=== PATIENT | male | born 1970 | race Caucasian/White ===

== ENCOUNTER 2022-11-09 10:41 | Outpatient (CLI) | payer BC, SELFPAY ==
--- NOTE | 2022-11-12 12:42 | WPDHOLTEREM ---
Holter/Event Monitor Holter/Event Monitor Date of procedure: 11/09/22 Holter/Event Procedure: 24 Hr Holter Monitor Indications: Bradycardia Conclusion: 1. 24 hour holter monitor on 11/09/22. 2. Underlying rhythm is sinus rhythm. HR range 50-119 bpm; average HR 68 bpm. 3. There are 2 premature supraventricular complexes. No supraventricular tachycardia. 4. There is 1 premature ventricular complex. No ventricular tachycardia. 5. No sinoatrial or atrioventricular blocks. No significant pauses greater than 2 seconds. 6. No symptoms available for correlation.
== END 2022-11-09 10:42 | disposition home or self-care (01) ==
LOC: CHSCARD 10:47
PROVIDERS: PCP Internal Medicine; Visit Provider Internal Medicine
DX: R00.1 Bradycardia, unspecified (principal)
CPT/HCPCS: 93225; 93226

== ENCOUNTER 2023-01-15 00:14 | Day surgery (SDC) | payer BC, SELFPAY ==
[2022-12-18 14:25] VITALS: BMI 33.0
[2023-01-15 06:36] VITALS: BP 128/84; PULSE 62; RESP 18; TEMP 36.1; O2SAT 100
[2023-01-15] MEDS: LACTATED RINGERS 1,000 ML 150 ML IV CONT (06:49)
--- NOTE | 2023-01-15 07:02 | P.PNAN_ITS ---
Anes - Initial Pre Proc Eval Procedure: Operation Date: 01/15/23 08:00 Proposed Procedures p Screening Colonoscopy - Jacky Mckeon MD Date/Time: 01/15/23 07:02 Surgeon: Jacky Mckeno MD Pre Op Diagnosis: neoplasm screening Patient Data Age: 52 Gender: M Height: 1.85 m Weight: 116.1 kg Last Vital Signs Temp 36.1 C L 01/15/23 06:36 Pulse 62 01/15/23 06:36 Resp 18 01/15/23 06:36 BP 128/84 01/15/23 06:36 Pulse Ox 100 01/15/23 06:36 O2 Del Method Room Air 01/15/23 06:36 Allergies Allergy/AdvReac Type Severity Reaction Status Date / Time No Known Allergies Allergy Verified 01/15/23 06:33 Home Medications Medication Instructions Recorded Confirmed Type multivit,calc,mins-folic 240 1 tablet PO DAILY 12/18/22 12/18/22 History mcg-vit K1 30 mcg-lycopene 300 mcg tablet (One-A-Day Men's Complete) Patient hx anesthesia problems: none Family hx anesthesia problems: none Results Review: All pre-operative results and documents have been reviewed as part of the pre- operative evaluation. [facility] Social History Social History Smoking status: Current every day smoker Tobacco type: smokeless tobacco Smokeless tobacco user: chewing tobacco Alcohol intake: current Alcohol use details: rarely Substance use type: does not use Living arrangements: with family Spiritual care concerns: No Anes - Eval Final PreProcedure Day of Procedure 01/15/23 07:02 Patient weight: obese Heart: regular rate and rhythm Lungs: decreased breath sounds Airway: Mallampati scale class II Neurological: alert and oriented Last oral intake: >/= 8 hours ASA classification: III Emergent: no Anesthetic plan: proceed Anesthesia type and monitoring: general GIVS and standard monitoring Results Review: All pre-operative results and documents have been reviewed as part of the pre- operative evaluation. Informed Consent: The patient's anesthetic plan and its attendant risks and benefits were discussed with the patient/family/POA. Questions were solicited and answers provided to the satisfaction of the patient/family/POA.
--- NOTE | 2023-01-15 07:09 | P.HP_ITS ---
History of Present Illness History of Present Illness Consent: Risks, benefits, and alternatives have been discussed and questions answered. Patient agrees to proceed with procedure. Chief complaint: neoplasm screening Narrative: Sherif Chappell III is a 52 year old male Presents for screening colonoscopy. Patient's current weight appetite and bowel movements are normal. Patient denies abdominal pain. He has had no bleeding. Family history is significant t hat his father had Crohn's disease. His grandfather had colon cancer. Review of Systems Review of Systems: Review of systems noncontributory. [facility] Social History Social History Smoking status: Current every day smoker Tobacco type: smokeless tobacco Smokeless tobacco user: chewing tobacco Alcohol intake: current Alcohol use details: rarely Substance use type: does not use Living arrangements: with family Spiritual care concerns: No Meds Home Medications and Allergies Home Medications Medication Instructions Recorded Confirmed Type multivit,calc,mins-folic 240 1 tablet PO DAILY 12/18/22 12/18/22 History mcg-vit K1 30 mcg-lycopene 300 mcg tablet (One-A-Day Men's Complete) Allergies Allergy/AdvReac Type Severity Reaction Status Date / Time No Known Allergies Allergy Verified 01/15/23 06:33 Vital Signs Vital Signs - 24 hr 01/15/23 06:36 Temperature 96.9 F L Pulse Rate 62 Respiratory Rate 18 Blood Pressure 128/84 Pulse Oximetry 100 Oxygen Delivery Room Air Exam Narrative: Physical exam reveals patient to be alert. Vital signs stable. HEENT exam is unremarkable. Patient is anicteric. Lungs are clear to auscultation and percussion. Heart is without murmur or extra sounds. Abdomen bowel sounds are present soft nontender with no organomegaly. Digital external rectal exam is normal. Assessment and Plan Assessment and plan (1) Encounter for screening colonoscopy: Code(s): Z12.11 - Encounter for screening for malignant neoplasm of colon Status: Acute Assessment and Plan: Patient presents today for screening colonoscopy.
[2023-01-15] MEDS: SIMETHICONE ORAL SUSPENSION 20 MG/0.3 ML 30 ML BOTTLE 0.6 ML IRRIGATION (07:35)
[2023-01-15 07:43] VITALS: BP 108/68; PULSE 65; RESP 18; O2SAT 100
[2023-01-15 07:53] VITALS: BP 109/68; PULSE 60; RESP 18; O2SAT 100
[2023-01-15 08:03] VITALS: BP 128/93; PULSE 63; RESP 21; O2SAT 98
== END 2023-01-15 08:07 | disposition home or self-care (01) ==
PROVIDERS: PCP Internal Medicine; Visit Provider Internal Medicine Gastroenterology
PROC: 0DJD8ZZ Inspection of Lower Intestinal Tract, Via Natural or Artificial Opening Endoscopic (ICD-10-PCS; CPT 45378; principal; 2023-01-15 08:00)
DX: Z12.11 Encounter for screening for malignant neoplasm of colon (principal); K64.8 Other hemorrhoids; F17.220 Nicotine dependence, chewing tobacco, uncomplicated; E66.9 Obesity, unspecified; Z68.33 Body mass index [BMI] 33.0-33.9, adult
CPT/HCPCS: 45378; J2704; J7120